=== PATIENT | male | born 1990 | race Caucasian/White ===

== ENCOUNTER 2020-10-01 18:42 | Emergency (ER) | payer OTHER ==
[2020-10-01 20:45] LABS: HEMOGLOBIN 14.4 gm/dl (14.0-17.5); RED BLOOD COUNT 4.8 M/UL (4.20-5.50); WHITE BLOOD COUNT 9.2 K/UL (4.5-11.0)
[2020-10-01 21:04] LABS: BUN/CREATININE RATIO 10 (0-10)
[2020-10-01] MEDS ORDERED: ZOFRAN ODT 4 MG4 MG SL (23:34)
[2020-10-09] MEDS ORDERED: IBU600 MG PO (09:17)
[2020-10-09] MEDS ORDERED: BUPROPION HCL150 M1 PO (09:18)
[2020-10-09] MEDS ORDERED: SERTRALINE HCL100 MG PO (09:18)
== END 2020-10-02 00:23 | disposition home or self-care (01) ==
LOC: ER1 18:42
PROVIDERS: Physician Assistant Medical
DX: K80.80 Other cholelithiasis without obstruction (principal); F17.210 Nicotine dependence, cigarettes, uncomplicated
CPT/HCPCS: 71046; 76705; 80053; 83605; 83690; 85025; 96374; 99284; J2270; J2405; J7030; Q9967

== ENCOUNTER → 2020-10-09 | Day surgery (SDC) | payer OTHER ==
[~2020-10-09] MED LIST: BUPROPION HCL150 M1 PO; IBU600 MG PO; SERTRALINE HCL100 MG PO; ZOFRAN ODT 4 MG4 MG SL
== END | disposition home or self-care (01) ==
LOC: OR 08:32
DX: K29.80 Duodenitis without bleeding (principal); K29.70 Gastritis, unspecified, without bleeding; K31.9 Disease of stomach and duodenum, unspecified; F41.9 Anxiety disorder, unspecified; F32.9 Major depressive disorder, single episode, unspecified; F17.210 Nicotine dependence, cigarettes, uncomplicated; E66.9 Obesity, unspecified; Z68.34 Body mass index [BMI] 34.0-34.9, adult; Z79.899 Other long term (current) drug therapy; Z79.1 Long term (current) use of non-steroidal anti-inflammatories (NSAID)
CPT/HCPCS: J2001; J2704; J7120